=== PATIENT | female | born 1960 | race Caucasian/White ===

== ENCOUNTER 2022-11-24 08:34 | Emergency (ER) | payer BC, SELFPAY ==
[2022-11-24 08:43] VITALS: BP 164/73; PULSE 68; RESP 16; TEMP 36.7; O2SAT 99
--- NOTE | 2022-11-24 08:51 | ED.GENADULT ---
HPI - General Adult General Chief complaint: Upper Respiratory Infection Stated complaint: sore throat; fever; coughing Source: patient and RN notes reviewed History of Present Illness HPI narrative: 62 yo F presents to urgent care with visitor at side. Pt states she has been having a sore throat for the last couple days. Pt reports a cough, a DAVIS, bilateral ear pain, upper back pain, and feels winded with exertion. Pt also reports some diarrhea. Pt has been taking ibuprofen and tylenol at home intermittently with good relief of fevers. Pt tested herself for Covid yesterday with negative results. Denies any chest pain or vomiting. Pt drinking fluids without issue. Related Data Home Medications Medication Instructions Recorded Confirmed cholecalciferol (vitamin D3) 1,250 1,250 mcg PO WEEKLY 11/24/22 11/24/22 mcg (50,000 unit) capsule felodipine 10 mg tablet,extended 10 mg PO DAILY 11/24/22 11/24/22 release 24 hr hydrochlorothiazide 12.5 mg tablet 12.5 mg PO DAILY 11/24/22 11/24/22 metoprolol succinate 100 mg 100 mg PO DAILY 11/24/22 11/24/22 tablet,extended release 24 hr pravastatin 20 mg tablet 20 mg PO DAILY 11/24/22 11/24/22 Allergies Allergy/AdvReac Type Severity Reaction Status Date / Time codeine Allergy Mild Other Verified 11/24/22 08:49 Sulfa (Sulfonamide Allergy Mild Rash Verified 11/24/22 08:49 Antibiotics) sulfamethoxazole Allergy Mild rash Verified 11/24/22 08:49 trimethoprim Allergy Mild rash Verified 11/24/22 08:49 Review of Systems Review of Systems: Pertinent positives and pertinent negatives per HPI. PMFSH Comments At the time of my signature, I reviewed and agree with the nursing past medical, surgical, social, and family history. There is no relevant family history pertinent to the patient complaint. Exam Narrative: GENERAL: This is a well-nourished, well-developed patient, in no apparent distress. HEAD: normocephalic, atraumatic. EYES: Sclera clear/white. Vision is grossly intact. EARS: External ears normal, auditory canals clear and without drainage, TMs normal without perforation. Hearing grossly intact. NOSE: External nose normal with no obvious nasal discharge, nares without redness, no rhinorrhea. THROAT: Mucous membranes moist, posterior pharynx clear. NECK: Neck supple, non-tender with lymphadenopathy. No masses or thyromegaly. CARDIOVASCULAR: Regular rate and rhythm without murmurs, gallops, or rubs. RESPIRATORY: Clear to auscultation. Breath sounds equal bilaterally. No wheezes, rales, or rhonchi. SKIN: warm, intact with no suspicious lesions or rash, good texture and turgor. NEURO: awake, alert, and oriented to person, place and time. There were no obvious focal neurologic abnormalities. BACK: Nontender without deformity or crepitance. No flank tenderness. Course Course Level of Care: Express Care Visit Vital Signs Vital signs: Vital Signs Temperature 98.1 F 11/24/22 08:43 Pulse Rate 68 11/24/22 08:43 Respiratory Rate 16 11/24/22 08:43 Blood Pressure 164/73 H 11/24/22 08:43 Pulse Oximetry 99 11/24/22 08:43 Oxygen Delivery Room Air 11/24/22 08:43 Temperature 98.1 F 11/24/22 08:43 Pulse Rate 68 11/24/22 08:43 Respiratory Rate 16 11/24/22 08:43 Blood Pressure 164/73 H 11/24/22 08:43 Pulse Oximetry 99 11/24/22 08:43 Oxygen Delivery Room Air 11/24/22 08:43 Reviewed Medical Decision Making MDM Narrative Medical decision making narrative: Viral illness may last between 7-21 days; antibiotics do not cure viral illness and are NOT recommended at this time. Also, recommend symptomatic treatment includes: rest, fluids, and increase humidity of the air at home. May take 1,000 mg of Acetaminophen and 600 mg of ibuprofen every 6 horus if needed for pain and/or fevers. Please schedule a follow-up visit with your personal physician for further evaluation and treatment within 3-5days. If your symptoms persist, change or wor
== END 2022-11-24 09:37 | disposition home or self-care (01) ==
PROVIDERS: Emergency Provider Nurse Practitioner Family; PCP Physician Assistant
DX: B34.9 Viral infection, unspecified (principal); E78.00 Pure hypercholesterolemia, unspecified; I10 Essential (primary) hypertension
CPT/HCPCS: 87081; 87880; 99213; G0463

== ENCOUNTER → 2023-01-04 10:46 | Outpatient (CLI) | payer BC, SELFPAY ==
--- NOTE | ~2023-01-04 | MM_ITS ---
EXAMINATION: MM screening yeyo BI w warner HISTORY: Screening mammogram TECHNIQUE: Craniocaudal and mediolateral oblique 3-D tomosynthesis images were obtained and synthetic 2-D images were generated. CAD analysis was submitted and interpreted. COMPARISON: No prior mammogram is available for comparison at this institution. BREAST PARENCHYMAL COMPOSITION: There are scattered areas of fibroglandular density. FINDINGS: RIGHT BREAST: No suspicious mass, calcification, or architectural distortion are identified to sugges t malignancy. LEFT BREAST: There is a mass in the middle third of the inner breast. IMPRESSION: 1. Left breast mass which may represent the patient's baseline however no comparison is currently briana ilable. 2. Comparison with prior mammograms is necessary. BI-RADS Category 0: Incomplete: Needs comparison with prior mammograms. Reviewed, dictated and finalized at location A. IMPRESSION: 1. Left breast mass which may represent the patient's baseline however no layton rison is currently available. 2. Comparison with prior mammograms is necessary. BI-RADS Category 0: Incomplete: Needs comparison with prior mammograms.
== END ==
PROVIDERS: PCP Physician Assistant; Visit Provider Physician Assistant
DX: Z12.31 Encounter for screening mammogram for malignant neoplasm of breast (principal); R92.8 Other abnormal and inconclusive findings on diagnostic imaging of breast
CPT/HCPCS: 77063; 77067

== ENCOUNTER 2023-06-29 20:00 | Emergency (ER) | payer BC, SELFPAY ==
[2023-06-29 20:14] VITALS: BP 151/80; PULSE 118; RESP 16; TEMP 37.6; O2SAT 99
--- NOTE | 2023-06-29 20:14 | ED.GENADULT ---
HPI - General Adult General Chief complaint: Back Pain/Injury Stated complaint: Back Pain/Fever Time Seen by Provider: 06/29/23 20:14 Source: patient, RN notes reviewed and old records reviewed Mode of arrival: ambulatory Limitations: no limitations History of Present Illness HPI narrative: 63-year-old female presents to the [facility] with complaints of back pain and fevers that started today. Patient reports upper back pain, chest pressure, shortness of breath reports a fever of 99. Onset (ago): hour(s) (4) Related Data Home Medications Medication Instructions Recorded Confirmed cholecalciferol (vitamin D3) 1,250 1,250 mcg PO WEEKLY 11/24/22 06/29/23 mcg (50,000 unit) capsule felodipine 10 mg tablet,extended 10 mg PO DAILY 11/24/22 06/29/23 release 24 hr hydrochlorothiazide 12.5 mg tablet 12.5 mg PO DAILY 11/24/22 06/29/23 metoprolol succinate 100 mg 100 mg PO DAILY 11/24/22 06/29/23 tablet,extended release 24 hr pravastatin 20 mg tablet 20 mg PO DAILY 11/24/22 06/29/23 Allergies Allergy/AdvReac Type Severity Reaction Status Date / Time codeine Allergy Mild Other Verified 06/29/23 20:10 Sulfa (Sulfonamide Allergy Mild Rash Verified 06/29/23 20:10 Antibiotics) sulfamethoxazole Allergy Mild rash Verified 06/29/23 20:10 trimethoprim Allergy Mild rash Verified 06/29/23 20:10 Review of Systems Review of Systems: All systems reviewed & are unremarkable except as noted in HPI and below Constitutional: Constitutional: Reports no additional constitutional complaints Eyes: Eyes: Reports no additional eye complaints ENT: Reports system reviewed and no additional complaints, except as documented Cardiovascular: Cardiovascular: Reports as per HPI, Reports chest pain, Denies pedal edema, Denies edema and Reports dyspnea Respiratory: Respiratory: Reports as per HPI, Reports no additional respiratory complaints, Denies chest congestion, Denies cough and Reports dyspnea Gastrointestinal: Gastrointestinal: Reports no additional gastrointestinal complaints, Denies abdominal pain, Denies nausea and Denies vomiting Musculoskeletal: Musculoskeletal: Reports no additional musculoskeletal complaints Integumentary/Breasts: Skin/Breast: Reports system reviewed and no additional complaints, except as docu Neurologic: Reports system reviewed and no additional complaints, except as documented Psychiatric: Psychiatric: Reports no additional psychiatric complaints Allergic/Immunologic: Allergic/Immunologic: Reports no additional allergic/immunologic complaints PMF Past Medical History Medical History (Updated 06/29/23 @ 20:34 by Amina Minaya APRN) High cholesterol History of high blood pressure Social History Social History (Updated 06/29/23 @ 20:30 by Amina Minaya APRN) Living arrangements: with family Gender identity (if verbalized by the patient): Female Comments At the time of my signature, I reviewed and agree with the nursing past medical, surgical, social, and family history. There is no relevant family history pertinent to the patient complaint. Exam Const: General: cooperative, healthy appearing, no acute distress, well developed, alert, uncomfortable and well nourished Nutritional Appearance: well nourished Orientation/consciousness: patient oriented x3 Limitations: no limitations HENMT: Head: normal to inspection Ears: hearing grossly normal bilaterally, external ears normal, TM's normal bilaterally, EAC's normal, mastoids normal and no periauricular adenopathy Face/Nose/Sinus: Normal external nose present, Normal nares present, Normal nasal mucous membranes and turbinates present, normal facial exam and face symmetric Face and sinus: normal facial exam and face symmetric Mouth: Yes Normal oral and palatal mucosa present, Yes lip normal and Yes moist mucous membranes Throat: posterior oropharynx normal, tonsils normal, uvula midline and no uvular edema Eyes: General: appearance norm
--- NOTE | 2023-06-29 20:20 | ECG_ITS ---
Measurements Intervals Pala Rate: 113 P: LA: 0 QRS: -6 QRSD: 84 T: 30 QT: 328 QTc: 450 Interpretive Statements SINUS TACHYCARDIA VOLTAGE CRITERIA FOR LVH BORDERLINE ST ABNORMALITY- ANTEROLATERAL LEADS ABNORMAL ECG NO PREVIOUS ECG AVAILABLE FOR COMPARISON Electronically Signed On 07-04-2023 10:23:02 MANUFACTURING SCHEDULER by Tahir Monroy D.O.
== END 2023-06-29 20:29 | disposition short-term general hospital (02) ==
PROVIDERS: Emergency Provider Nurse Practitioner; PCP Physician Assistant
DX: I48.92 Unspecified atrial flutter (principal); Z79.899 Other long term (current) drug therapy; Z20.822 Contact with and (suspected) exposure to COVID-19
CPT/HCPCS: 81003; 87426; 87804; 93005; 99215; C9803; G0463

== ENCOUNTER 2023-06-29 20:56 | Emergency (ER) | payer BC, SELFPAY ==
--- NOTE | ~2023-06-29 | XR_ITS ---
EXAMINATION: XR chest 1V portable Exam Date/Time: 06/29/2023 21:45 RELATIONS DIRECTOR HISTORY: CHEST PRESSURE ATRIAL FLUTTER Comparison: 02/02/2016. RESULT: Lines, tubes, and devices: None. Lungs and pleura: Minimal streaky bibasilar atelectasis/scar, otherwise clear. Cardiomediastinal silhouette: Stable. Other: No acute osseous or upper abdominal finding. IMPRESSION: No acute cardiopulmonary process. Reviewed, dictated and finalized at location K. TIONS DIRECTOR
--- NOTE | ~2023-06-29 | CT_ITS ---
EXAMINATION: CTA chest PE abdomen pel DATE: 06/29/2023 22:30 INDICATION: chest pain, fever, leukocytosis TECHNIQUE: Computed tomography angiography (CTA) of the chest was performed with 100 mL Omnipaque-350 intravenous contrast timed to evaluate the pulmonary arteries, followed by portal venous phase imagi ng of the abdomen and pelvis. Coronal maximum intensity projection 3D-reconstructions were created by the technologist. The dose-length product (DLP) was 1038.86 mGy-cm. Automated exposure control and i terative reconstruction technique were employed. COMPARISON: X-ray chest, same date. FINDINGS: CHEST: Lung parenchyma and airways: Minimal dependent atelectasis. Airways are clear. Pleura: Unremarkable. Thoracic inlet, axillae and chest wall: 2.2 cm left thyroid nodule. 9 mm nodular opacity in the upper inner quadrant of the left breast. Thoracic aorta: Minimal arch calcification. Mediastinum: Normal. Heart and pericardium: Normal. Coronary artery calcifications: Moderate. Thoracic bones: No acute osseous finding. Pulmonary arteries: Study quality: Mildly limited by quantum mottle and beam hardening, overall diagn ostic. No pulmonary emboli detected. ABDOMEN/PELVIS: Liver: Hepatomegaly. Diffuse fatty infiltration. Subcentimeter right lobe hypodensity, likely cyst or hemangioma but too small to characterize. Biliary/Gallbladder: No bile duct dilation. Pancreas: No mass or duct dilation. Spleen: Normal. Adrenals:No mass. Kidneys: No suspicious mass, obstructing stone, or hydronephrosis. Simple right upper pole cyst. Mult iple bilateral hypodensities that are too small to characterize but most likely represent cysts. GI tract: No small or large bowel dilation. Normal appendix. Diverticulosis without diverticulitis. Mesentery/Peritoneum: No ascites, mass, or free air. Retroperitoneum: No mass. Atherosclerotic abdominal aortic and/or arterial calcifications. Pelvis: Pelvic organs are within normal limits. Soft Tissues: Soft tissues and body wall unremarkable. Abdominopelvic bones: No acute osseous finding. IMPRESSION: No CT evidence of acute pulmonary embolus. No acute intrathoracic process detected. 2.2 cm left thyroid nodule, recommend outpatient thyroid ultrasound. 9 mm nodular density in the upper inner quadrant of the left breast. Recommend outpatient diagnostic breast ultrasound and mammography. Hepatomegaly with steatosis. No acute abdominopelvic process detected. Reviewed, dictated and finalized at location K. YTICS LEADER
[2023-06-29 20:56] VITALS: BP 155/80; PULSE 115; RESP 26; TEMP 37.7; O2SAT 97
[2023-06-29 21:07] VITALS: PULSE 108; O2SAT 98
[2023-06-29 21:15] VITALS: BP 159/87; PULSE 113; RESP 20; O2SAT 96
[2023-06-29 21:50] LABS: Basophils Absolute Auto 0.1 K/mm3 (0.0-0.1); Basophils Percent Auto 0.4 % (0.2-1.2); Eosinophils Absolute Auto 0.1 K/mm3 (0-0.3); Eosinophils Percent Auto 0.2 % (0-4.4); Hematocrit 40.9 % (37.0-47.0); Hemoglobin 13.7 g/dL (12.0-15.0); Immature Granulocyte Percent A 1.1 % (0-0.5); Lymphocytes Absolute Auto 1.52 K/mm3 (0.9-3.2); Lymphocytes Percent Auto 4.1 % (18.3-44.2); Mean Corpuscular HGB Conc 33.5 g/dl (32-36); Mean Corpuscular Hemoglobin 31.6 pg (26-34); Mean Corpuscular Volume 94.2 fl (80-100); Mean Platelet Volume 10.7 fl (7.4-10.4); Monocytes Absolute Auto 1.5 K/mm3 (0.1-0.6); Monocytes Percent Auto 4.1 % (2.6-8.5); Neutrophils Absolute Auto 33.3 K/mm3 (1.3-6.7); Neutrophils Percent Auto 90.1 % (45.5-73.1); Platelet Count Result 298 k/mm3 (150-375); Red Blood Count 4.34 M/mm3 (4.2-5.4); Red Cell Distribution Width 12.8 % (11.5-14.5)
[2023-06-29 21:57] LABS: Prothrombin Time 13.5 Seconds (11.1-14.7)
[2023-06-29 21:58] LABS: Partial Thromboplastin Time 24.2 SECONDS (22.3-36.8)
[2023-06-29 22:05] LABS: Alanine Aminotransferase 41 U/L (6-35); Albumin Level 4.6 g/dL (3.5-5.1); Alkaline Phosphatase 113 U/L (38-126); Anion Gap 13 mmol/L (8-16); Aspartate Amino Transferase 43 U/L (14-36); Bilirubin,Total 0.6 mg/dL (0.2-1.3); Blood Urea Nitrogen 15 mg/dL (7-17); Calcium 9.4 mg/dL (8.4-10.2); Carbon Dioxide 24 mmol/L (22-30); Chloride 100 mmol/L (98-107); Estimated Glomerular Filt Rate > 60; Glucose 221 mg/dL (65-110); Lipase 56 U/L (23-300); Potassium 3.6 mmol/L (3.4-5.0); Sodium 137 mmol/L (137-145)
[2023-06-29 22:16] LABS: Troponin I < 0.012 ng/mL (0.000-0.034)
[2023-06-29 22:21] LABS: Appearance Urine Clear (Clear); Bilirubin Urine Negative (Negative); Blood Urine Negative (Negative); Color Urine Yellow (Yellow); Glucose Urine UA 3+ mg/dL (Negative); Ketones Urine Trace mg/dL (Negative); Leukocyte Esterase Ur Negative LEU/UL (Negative); Nitrate Urine Negative (Negative); Protein Urine Negative (Negative); Specific Grav Ur 1.017 (1.001-1.035); Urobilinogen Urine 0.2 mg/dL (<2.0)
[2023-06-29 22:23] LABS: Add Urine Microscopic? NO
[2023-06-29 22:33] LABS: Influenza A QL RT-PCR Negative (Negative); Influenza B QL RT-PCR Negative (Negative); RSV RNA, RT-PCR Negative (Negative); SARS-CoV-2 RNA PCR Negative (Negative)
[2023-06-29 22:42] LABS: Lactic Acid Reflex 4.2 mmol/L (0.7-2.0)
[2023-06-29] MEDS: ACETAMINOPHEN 500 MG TABLET 1000 MG PO (22:53)
[2023-06-29] MEDS: SODIUM CHLORIDE 0.9% IV 1,000 ML 999 ML IV CONT ×2 (22:59)
--- NOTE | 2023-06-29 23:06 | PC.NURSE ---
THIS RN CONTACTED PHLEBOTOMY FOR LAB DRAW ON PT.
[2023-06-30 00:10] LABS: Basophils Absolute Auto 0.1 K/mm3 (0.0-0.1); Basophils Percent Auto 0.4 % (0.2-1.2); Hematocrit 38.1 % (37.0-47.0); Hemoglobin 12.5 g/dL (12.0-15.0); Immature Granulocyte Absolute 0.35 K/mm3 (0.00-0.031); Immature Granulocyte Percent A 1.1 % (0-0.5); Lymphocytes Absolute Auto 1.46 K/mm3 (0.9-3.2); Lymphocytes Percent Auto 4.4 % (18.3-44.2); Mean Corpuscular HGB Conc 32.8 g/dl (32-36); Mean Corpuscular Volume 94.5 fl (80-100); Mean Platelet Volume 10.1 fl (7.4-10.4); Monocytes Percent Auto 2.9 % (2.6-8.5); Neutrophils Absolute Auto 30.3 K/mm3 (1.3-6.7); Neutrophils Percent Auto 91.2 % (45.5-73.1); Platelet Count Result 258 k/mm3 (150-375); Red Blood Count 4.03 M/mm3 (4.2-5.4); Red Cell Distribution Width 12.8 % (11.5-14.5); White Blood Count 33.2 K/mm3 (4.5-10.0)
[2023-06-30 00:29] LABS: Lactic Acid Reflex 3.3 mmol/L (0.7-2.0)
[2023-06-30 00:32] VITALS: BP 139/82; PULSE 96; RESP 23; O2SAT 97
--- NOTE | 2023-06-30 00:53 | ED.GENADULT ---
HPI - General Adult General Chief complaint: Chest Pain Stated complaint: CHEST PAIN Time Seen by Provider: 06/29/23 21:19 History of Present Illness HPI narrative: Patient is a 63-year-old female who presents emergency department with chief complaint of fever and back and chest pressure. Patient reports that symptoms started today and reports that [facility] was found have a low-grade temperature and heart rate was in the 1 teens and possible atrial flutter on the EKG. Patient has no prior history of cardiac disease his has history of hypercholesterolemia and high blood pressure. The patient does report that she has had low back discomfort. Related Data Home Medications Medication Instructions Recorded Confirmed cholecalciferol (vitamin D3) 1,250 1,250 mcg PO WEEKLY 11/24/22 06/29/23 mcg (50,000 unit) capsule felodipine 10 mg tablet,extended 10 mg PO DAILY 11/24/22 06/29/23 release 24 hr hydrochlorothiazide 12.5 mg tablet 12.5 mg PO DAILY 11/24/22 06/29/23 metoprolol succinate 100 mg 100 mg PO DAILY 11/24/22 06/29/23 tablet,extended release 24 hr pravastatin 20 mg tablet 20 mg PO DAILY 11/24/22 06/29/23 Allergies Allergy/AdvReac Type Severity Reaction Status Date / Time codeine Allergy Mild Other Verified 06/29/23 20:10 Sulfa (Sulfonamide Allergy Mild Rash Verified 06/29/23 20:10 Antibiotics) sulfamethoxazole Allergy Mild rash Verified 06/29/23 20:10 trimethoprim Allergy Mild rash Verified 06/29/23 20:10 morphine AdvReac Anxiety Verified 06/29/23 23:46 Review of Systems Review of Systems: A 10 system review of systems was completed on the patient and is negative except for what is stated in the HPI. Nursing and ancillary documentation was reviewed. [facility], [facility] Past Medical History Medical History High cholesterol History of high blood pressure Social History Social History Living arrangements: with family Gender identity (if verbalized by the patient): Female Exam Narrative: GENERAL: Well-appearing, well-nourished, and in no acute distress. HEAD: Normocephalic, atraumatic. EYES: PERRLA and EOMI. ENT: Nares clear, no rhinorrhea or epistaxis. Mucous membranes moist. NECK: Supple. CHEST: Clear to auscultation. No respiratory distress. HEART: Regular rate and rhythm. No murmur heard. Normal peripheral pulses. ABDOMEN: Soft, nontender, nondistended, normal active bowel sounds. EXTREMITIES: Normal range of motion. No edema. SKIN: Warm, dry, no rash. NEURO: No focal deficits. Alert and oriented x3. PSYCH: Normal mood and affect. Course Vital Signs Vital signs: Vital Signs Temperature 37.7 C H 06/29/23 20:56 Pulse Rate 115 H 06/29/23 20:56 Respiratory Rate 26 H 06/29/23 20:56 Blood Pressure 155/80 H 06/29/23 20:56 Pulse Oximetry 97 06/29/23 20:56 Temperature 37.7 C H 06/29/23 20:56 Pulse Rate 108 H 06/29/23 21:07 Respiratory Rate 26 H 06/29/23 20:56 Blood Pressure 155/80 H 06/29/23 20:56 Pulse Oximetry 98 06/29/23 21:07 Oxygen Delivery Room Air 06/29/23 21:07 Medical Decision Making MDM Narrative Medical decision making narrative: Differential diagnosis is febrile illness, ACS, pneumonia, COVID, sepsis Laboratory studies were obtained the patient showed a white count of 37.0 the patient did have an initially elevated lactate and at 4.2. The patient was fluid resuscitated and her fever was treated and subsequently her lactate has come down to 3.3. Chest x-ray showed no focal infiltrate. COVID flu and RSV were negative urinalysis showed no evidence UTI CT chest abdomen pelvis showed no acute infectious process. Case was discussed with our hospitalist and we do not have heme Onc or ID services this week and recommended transfer to higher level of care. Case was discussed with the
[2023-06-30 01:17] LABS: Reflex Lactic Acid Yes or No Add Lactic
[2023-06-30 01:27] LABS: Troponin I < 0.012 ng/mL (0.000-0.034)
[2023-06-30 01:30] VITALS: BP 129/72; PULSE 99; RESP 23; O2SAT 99
[2023-06-30 01:46] LABS: Procalcitonin 0.2 ng/mL
[2023-06-30 02:29] LABS: Lactic Acid 2.7 mmol/L (0.7-2.0)
[2023-06-30 02:45] VITALS: BP 135/67; PULSE 89; RESP 20; O2SAT 95
[2023-06-30 03:45] VITALS: BP 120/69; PULSE 85; RESP 23; O2SAT 95
[2023-06-30 06:31] VITALS: BP 131/70; PULSE 83; RESP 23; O2SAT 94
== END 2023-06-30 06:55 | disposition short-term general hospital (02) ==
PROVIDERS: Emergency Provider Emergency Medicine; PCP Physician Assistant
DX: R50.9 Fever, unspecified (principal); R07.9 Chest pain, unspecified; D72.829 Elevated white blood cell count, unspecified; Z20.822 Contact with and (suspected) exposure to COVID-19; E78.00 Pure hypercholesterolemia, unspecified; I10 Essential (primary) hypertension; E04.1 Nontoxic single thyroid nodule; K76.0 Fatty (change of) liver, not elsewhere classified; N64.89 Other specified disorders of breast
CPT/HCPCS: 36415; 71045; 71275; 74177; 80053; 81003; 83605; 83690; 84145; 84484; 85025; 85610; 85730; 87040; 87426; 87637; 87804; 93005; 96360; 99285; A9270; C9803; J7030; Q9967

== ENCOUNTER → 2023-07-05 14:46 | Outpatient (CLI) | payer SELFPAY ==
--- NOTE | ~2023-07-05 | XR_ITS ---
EXAMINATION: XR ankle LT min 3V DATE: 07/05/2023 15:27 INDICATION: Left ankle pain. TECHNIQUE: 4 views of left ankle were obtained. COMPARISON: None. FINDINGS: There is an oblique fracture of distal fibula with medial aspect of the fracture line 2 mm distal to the level of the tibial plafond. The distal fracture fragment demonstrates 2 mm posterolate ral displacement. There is heterotopic ossification distal to fibula. There is widening of the latera l ankle mortise. There is mild midfoot osteoarthritis. Ankle swelling is noted. IMPRESSION: 1. Oblique fracture of distal fibula. 2. Widening of the lateral ankle mortise. 3. Heterotopic ossification distal to fibula that may be acute avulsion fractures or findings from ol d injury. Reviewed, dictated and finalized at location E. INTHOLOGY TEACHER IMPRESSION: 1. Oblique fracture of distal fibula. 2. Widening of the lateral ankle mortise. 3. Heterotopic ossification distal to fibula that may be acute avulsion fractur es or findings from old injury.
== END ==
PROVIDERS: PCP Physician Assistant; Visit Provider Physician Assistant
DX: S82.832A Other fracture of upper and lower end of left fibula, initial encounter for closed fracture (principal); X58.XXXA Exposure to other specified factors, initial encounter
CPT/HCPCS: 73610

== ENCOUNTER → 2023-07-25 09:32 | Outpatient (CLI) | payer BC, SELFPAY ==
--- NOTE | ~2023-07-25 | US_ITS ---
EXAMINATION: US breast LT limited HISTORY: Patient with left breast mass noted on CT dated 06/29/2023 TECHNIQUE: Limited left breast ultrasound was performed. FINDINGS: There is an 11 mm cyst in the upper inner quadrant of the left breast at the 10:00 location , 4 cm from the nipple. This corresponds to the mass identified on CT as well as a mass that has been mammographically stable since 2017. IMPRESSION: Benign left breast cyst corresponding to the abnormality in question on recent CT. Routine screening mammography is recommended. BI-RADS Category 2: Benign finding(s). Reviewed, dictated and finalized at location A. CLOSURE CLERK
--- NOTE | ~2023-07-25 | US_ITS ---
EXAMINATION: US thyroid DATE: 07/25/2023 10:09 INDICATION: Nontoxic thyroid nodule TECHNIQUE: Multiple ultrasound images of the thyroid were obtained. COMPARISON: None. FINDINGS: The right thyroid lobe measures 3.8 x 1.8 x 1.3 cm. The left thyroid lobe measures 3.9 x 2.3 x 2.2 cm. A couple 8 mm wider than tall solid hypoechoic nodules, both with partially smooth, partially il l-defined margins and without echogenic foci in the inferior right and superior left thyroid lobes (T I-RADS 4, moderately suspicious , FNA if >=1.5 cm, annual followup is >=1 cm). Additional 1.1 cm TI R ADS 4 nodule at the right side of the thyroid isthmus with similar imaging features as well as a coup le small internal echogenic foci with posterior comet tail artifact. There is a more subtle 2.5 x 1.9 x 1.8 cm solid wider than tall heterogeneously iso to hypoechoic mass with smooth margins in the lef t thyroid lobe also TI RADS 4. There is normal echotexture, echogenicity and vascular flow throughout the remainder of the thyroid gland. IMPRESSION: 1. The nodular goiter. Recommend ultrasound-guided fine-needle aspiration of the largest 2.5 cm TI RA DS 4 left thyroid nodule. Reviewed, dictated and finalized at location A. CLUB MAKER IMPRESSION: 1. The nodular goiter. Recommend ultrasound-guided fine-needle aspiration of th e largest 2.5 cm TI RADS 4 left thyroid nodule.
== END ==
PROVIDERS: PCP Physician Assistant; Visit Provider Physician Assistant
DX: N63.20 Unspecified lump in the left breast, unspecified quadrant (principal); E04.1 Nontoxic single thyroid nodule
CPT/HCPCS: 76536; 76642

== ENCOUNTER 2024-04-05 15:27 | Outpatient (CLI) | payer BC, SELFPAY ==
--- NOTE | ~2024-04-05 | XR_ITS ---
EXAMINATION: XR ankle LT min 3V DATE: 04/05/2024 15:45 INDICATION: Left ankle pain TECHNIQUE: Anteroposterior, oblique, mortise, and lateral views of the left ankle were obtained. COMPARISON: 07/05/2023 FINDINGS: The previously seen oblique fracture of the lateral malleolus is healed in essentially anatomic align ment. No other fractures identified. Mild polyarticular osteoarthritis at the left ankle and several joints in the left midfoot. Small amount of heterotopic ossification along the inferomedial margin of the lateral malleolus likely sequela of old trauma, potentially sprain of the anterior talofibular l igament. There is soft tissue swelling anterior to the ankle with suggestion of a ankle joint effusio n. IMPRESSION: 1. Old lateral malleolar fracture is now healed in near-anatomic alignment. No acute osseous abnormal ity. 2. Mild polyarticular osteoarthritis at the left midfoot and ankle with suggestion of a possible ankl e joint effusion. Reviewed, dictated and finalized at location A. IMPRESSION: 1. Old lateral malleolar fracture is now healed in near-anatomic alignment. No acute osseous abnormality. 2. Mild polyarticular osteoarthritis at the left midfoot and ankle with suggest ion of a possible ankle joint effusion.
--- NOTE | ~2024-04-05 | XR_ITS ---
EXAMINATION: XR_[id number]_CR DATE: 04/05/2024 15:45 INDICATION: Left knee pain. TECHNIQUE: 2 views of left knee standing were obtained. COMPARISON: None. FINDINGS: Alignment is normal. No fracture. There is mild tricompartmental osteoarthritis. There is a small knee joint effusion. IMPRESSION: 1. Mild left knee osteoarthritis. 2. Small left knee joint effusion. Reviewed, dictated and finalized at location A.
== END 2024-04-05 15:28 | disposition home or self-care (01) ==
LOC: MICIMG 15:28
PROVIDERS: PCP Physician Assistant; Visit Provider Physician Assistant
DX: M17.12 Unilateral primary osteoarthritis, left knee (principal); M25.462 Effusion, left knee; M19.072 Primary osteoarthritis, left ankle and foot
CPT/HCPCS: 73560; 73610

== ENCOUNTER 2024-04-29 03:04 | Day surgery (SDC) | payer BC, SELFPAY ==
[2024-04-25 09:54] VITALS: BMI 29.4
--- NOTE | 2024-04-25 10:31 | PC.NURSE ---
During pre admission phone call patient expressed concerns about medical bills. Jennifer, financial counselor, was reached by myself and given patients concerns. Jennifer stated for us to give the patient her direct number for patient to reach out to Jennifer.
--- NOTE | 2024-04-28 15:02 | WPDANESEPP ---
Anes - Eval Pre Procedure Procedure: Operation Date: 04/29/24 11:30 Proposed Procedures p Screening Colonoscopy - Sreekanth Albert MD Date/Time: 04/28/24 15:02 Pre Op Diagnosis: screening of colon Patient Data Age: 63 Gender: F Height: 1.57 m Weight: 73 kg Allergies Allergy/AdvReac Type Severity Reaction Status Date / Time codeine Allergy Mild Other Verified 04/25/24 09:50 Sulfa (Sulfonamide Allergy Mild Rash Verified 04/25/24 09:50 Antibiotics) sulfamethoxazole Allergy Mild rash Verified 04/25/24 09:50 trimethoprim Allergy Mild rash Verified 04/25/24 09:50 morphine AdvReac Anxiety Verified 04/25/24 09:50 Home Medications Medication Instructions Recorded Confirmed Type cholecalciferol (vitamin D3) 1,250 1,250 mcg PO WEEKLY 11/24/22 04/25/24 History mcg (50,000 unit) capsule felodipine 10 mg tablet,extended 10 mg PO DAILY 11/24/22 04/25/24 History release 24 hr hydrochlorothiazide 12.5 mg tablet 12.5 mg PO DAILY 11/24/22 04/25/24 History metoprolol succinate 100 mg 100 mg PO DAILY 11/24/22 04/25/24 History tablet,extended release 24 hr pravastatin 20 mg tablet 20 mg PO DAILY 11/24/22 04/25/24 History famotidine 20 mg tablet 10 mg PO DAILY 04/25/24 04/25/24 History icosapent ethyl 1 gram capsule 1,000 g PO DAILY 04/25/24 04/25/24 History (Vascepa) Patient hx anesthesia problems: none Family hx anesthesia problems: none Results Review: All pre-operative results and documents have been reviewed as part of the pre-operative evaluation. [facility] Past Medical History Medical History High cholesterol History of high blood pressure Social History Social History Years smoked: 4 Smoking status: Former smoker Tobacco type: cigarettes Living arrangements: other Additional living arrangements comments: with sp Gender identity (if verbalized by the patient): Female Exam Day of Procedure 04/28/24 15:02
[2024-04-29 10:55] VITALS: BP 175/98; PULSE 66; RESP 18; TEMP 36.3; O2SAT 97
[2024-04-29] MEDS: LACTATED RINGERS 1,000 ML 150 ML IV CONT (11:06)
--- NOTE | 2024-04-29 11:30 | PM.IMHP ---
H&P: HPI History of Present Illness Date/Time: 04/29/24 11:30 Chief Complaint: History of colon polyps Narrative: The patient has a history of colonic polyps, the last colonoscopy was 5 years ago Review of Systems Review of Systems: All systems reviewed & are unremarkable except as noted in HPI and below PMFSH Past Medical History Medical History High cholesterol History of high blood pressure Social History Social History Years smoked: 4 Smoking status: Former smoker Tobacco type: cigarettes Living arrangements: other Additional living arrangements comments: with sp Gender identity (if verbalized by the patient): Female Meds Home Medications and Allergies Home Medications Medication Instructions Recorded Confirmed Type cholecalciferol (vitamin D3) 1,250 1,250 mcg PO WEEKLY 11/24/22 04/29/24 History mcg (50,000 unit) capsule felodipine 10 mg tablet,extended 10 mg PO DAILY 11/24/22 04/29/24 History release 24 hr hydrochlorothiazide 12.5 mg tablet 12.5 mg PO DAILY 11/24/22 04/29/24 History metoprolol succinate 100 mg 100 mg PO DAILY 11/24/22 04/29/24 History tablet,extended release 24 hr pravastatin 20 mg tablet 20 mg PO DAILY 11/24/22 04/29/24 History famotidine 20 mg tablet 10 mg PO DAILY 04/25/24 04/29/24 History icosapent ethyl 1 gram capsule 1,000 g PO DAILY 04/25/24 04/29/24 History (Vascepa) Allergies Allergy/AdvReac Type Severity Reaction Status Date / Time codeine Allergy Mild Other Verified 04/29/24 10:47 Sulfa (Sulfonamide Allergy Mild Rash Verified 04/29/24 10:47 Antibiotics) sulfamethoxazole Allergy Mild rash Verified 04/29/24 10:47 trimethoprim Allergy Mild rash Verified 04/29/24 10:47 morphine AdvReac Anxiety Verified 04/29/24 10:47 Vital Signs Vital Signs - 24 hr 04/29/24 10:55 Temperature 97.4 F L Pulse Rate 66 Respiratory Rate 18 Blood Pressure 175/98 H Pulse Oximetry 97 Oxygen Delivery Room Air Assessment and Plan Assessment and plan (1) History of colonic polyps: Code(s): Z86.0100 - Personal history of colon polyps, unspecified Status: Acute Plan The patient is deemed a good candidate for the procedure. Consent signed. Will proceed.
--- NOTE | 2024-04-29 11:33 | P.PNAN_ITS ---
Anes - Initial Pre Proc Eval Procedure: Operation Date: 04/29/24 11:30 Proposed Procedures p Screening Colonoscopy - Sreekanth Albert MD Date/Time: 04/29/24 11:33 Surgeon: Sreekanth Albret MD Pre Op Diagnosis: screening of colon Patient Data Age: 63 Gender: F Height: 1.57 m Weight: 71.4 kg Last Vital Signs Temp 36.3 C L 04/29/24 10:55 Pulse 66 04/29/24 10:55 Resp 18 04/29/24 10:55 BP 175/98 H 04/29/24 10:55 Pulse Ox 97 04/29/24 10:55 O2 Del Method Room Air 04/29/24 10:55 Allergies Allergy/AdvReac Type Severity Reaction Status Date / Time codeine Allergy Mild Other Verified 04/29/24 10:47 Sulfa (Sulfonamide Allergy Mild Rash Verified 04/29/24 10:47 Antibiotics) sulfamethoxazole Allergy Mild rash Verified 04/29/24 10:47 trimethoprim Allergy Mild rash Verified 04/29/24 10:47 morphine AdvReac Anxiety Verified 04/29/24 10:47 Home Medications Medication Instructions Recorded Confirmed Type cholecalciferol (vitamin D3) 1,250 1,250 mcg PO WEEKLY 11/24/22 04/29/24 History mcg (50,000 unit) capsule felodipine 10 mg tablet,extended 10 mg PO DAILY 11/24/22 04/29/24 History release 24 hr hydrochlorothiazide 12.5 mg tablet 12.5 mg PO DAILY 11/24/22 04/29/24 History metoprolol succinate 100 mg 100 mg PO DAILY 11/24/22 04/29/24 History tablet,extended release 24 hr pravastatin 20 mg tablet 20 mg PO DAILY 11/24/22 04/29/24 History famotidine 20 mg tablet 10 mg PO DAILY 04/25/24 04/29/24 History icosapent ethyl 1 gram capsule 1,000 g PO DAILY 04/25/24 04/29/24 History (Vascepa) Patient hx anesthesia problems: none Family hx anesthesia problems: none Results Review: All pre-operative results and documents have been reviewed as part of the pre-op erative evaluation. [facility] Past Medical History Medical History High cholesterol History of high blood pressure Social History Social History Years smoked: 4 Smoking status: Former smoker Tobacco type: cigarettes Living arrangements: other Additional living arrangements comments: with sp Gender identity (if verbalized by the patient): Female Anes - Eval Final PreProcedure Day of Procedure 04/29/24 11:33 Patient weight: overweight Heart: regular rate and rhythm Lungs: clear to auscultation Airway: Mallampati scale class II Neurological: alert and oriented Last oral intake: >/= 8 hours ASA classification: III Emergent: no Anesthetic plan: proceed Anesthesia type and monitoring: general GIVS and standard monitoring Results Review: All pre-operative results and documents have been reviewed as part of the pre- operative evaluation. Informed Consent: The patient's anesthetic plan and its attendant risks and benefits were discussed with the patient/family/POA. Questions were solicited and answers provided to the satisfaction of the patient/family/POA.
[2024-04-29 11:58] VITALS: BP 129/70; PULSE 70; RESP 20; O2SAT 94
[2024-04-29 12:08] VITALS: BP 125/72; PULSE 61; RESP 19; O2SAT 93
[2024-04-29 12:18] VITALS: BP 128/80; PULSE 61; RESP 18; O2SAT 93
== END 2024-04-29 12:29 | disposition home or self-care (01) ==
PROVIDERS: PCP Physician Assistant; Visit Provider Internal Medicine Gastroenterology
PROC: 0DJD8ZZ Inspection of Lower Intestinal Tract, Via Natural or Artificial Opening Endoscopic (ICD-10-PCS; CPT 45378; principal; 2024-04-29 11:30)
DX: Z12.11 Encounter for screening for malignant neoplasm of colon (principal); I10 Essential (primary) hypertension; E78.00 Pure hypercholesterolemia, unspecified; Z87.891 Personal history of nicotine dependence; Z86.0100 Personal history of colon polyps, unspecified
CPT/HCPCS: 45378; J2003; J2704; J7120